=== PATIENT | female | born 2000 | race Caucasian/White ===

== ENCOUNTER 2018-06-24 21:52 | Emergency (ER) | payer BC, SELFPAY ==
[2018-06-24 21:53] VITALS: BP 124/73; PULSE 79; RESP 14; TEMP 36.7; O2SAT 98; BMI 30.5
[2018-06-24] MEDS: Naproxen 500 MG Tablet PO (23:06)
[2018-06-24 23:07] LABS: Bacteria 0 SEEN /hpf (None Seen); Mucous, Urine 0 SEEN /hpf (<or=2+); Red Blood Cells-Urine 0 SEEN /hpf (0-5); Squamous Epithelial Cells - UA 0 SEEN /hpf (5-10); White Blood Cells 0 SEEN /hpf (0-5)
[2018-06-24 23:16] LABS: Color, Urine Yellow (Yellow); Glucose, Dipstick Normal (Normal); Ketone-Dipstick Negative (Negative); Leukocyte Esterase-Dipstick Negative /ul (Negative); Nitrite-Dipstick Negative (Negative); Occult Blood-Urine Negative /ul (Negative); Protein-Dipstick Negative (Negative); Urine Bilirubin Dipstick Negative (Negative); Urine Clarity Clear (Clear); Urine Urobilinogen Normal (Normal); Urine pH 6.5 (5.0 - 8.0)
[2018-06-24 23:17] LABS: Internal QC Validated? YES +Cl - CLEAR BKGD
[2018-06-24 23:18] LABS: Pregnancy, Urine Negative Negative
--- NOTE | 2018-06-24 23:37 | ED.VISSUMM ---
- ER Visit Summary Date of Service: 06/24/18 Chief Complaint: Pelvic pain History of Present Illness: The patient is a 17 F who is a pelvic pain. Been worse over the past 2 days. She describes cramping. She has a known ovarian cyst on the right-hand side. She has been trying ibuprofen but it did not help. No dysuria or hematuria. She states she started with some vaginal bleeding today. She is on an oral contraceptive pill. Her [employer] is out of town. Physical Examination: Vital signs reviewed. HEENT exam unremarkable. Heart is regular. Lungs clear. Abdomen is soft with suprapubic tenderness to palpation. Extremities reveal no edema. Neurologic exam normal. Test Results: Urinalysis and hCG are negative Emergency Department Course and Treatment: Naproxen did not help her pain so she will be given a shot of Toradol. She will go home with naproxen. She will follow up with her OB Treatment Plan: [] Disposition: Discharge Impression: Pelvic pain This note was generated with [employer] dictation software. It may contain incorrect words, spelling, and punctuation that were not noted in review of the chart prior to signing ED Disposition - Plan for ED Patient: Chief Complaint: Female C/O Referrals: [facility] Doctor,Out of [Primary Care Provider] -
--- NOTE | 2018-06-24 23:38 | ED.DEP ---
ED Disposition - Plan for ED Patient: Disposition: Home or Assisted Living Chief Complaint: Female C/O Instructions: ED Pelvic Pain [facility] Prescriptions: Naproxen [Naprosyn] 500 mg PO BID PRN #20 tab Referrals: [facility] Doctor,Out of [Primary Care Provider] -
[2018-06-24] MEDS: Ketorolac 60 MG/2 ML Vial IM (23:43)
[2018-06-24 23:55] VITALS: BP 118/71; PULSE 74; RESP 18; O2SAT 96
== END 2018-06-24 23:55 | disposition home or self-care (01) ==
PROVIDERS: Emergency Provider Emergency Medicine
DX: R10.2 Pelvic and perineal pain (principal); N93.9 Abnormal uterine and vaginal bleeding, unspecified; N83.201 Unspecified ovarian cyst, right side; Z79.3 Long term (current) use of hormonal contraceptives
CPT/HCPCS: 81001; 81025; 96372; 99282